=== PATIENT | female | born 1955 | race Caucasian/White ===

== ENCOUNTER 2017-09-04 18:30 | Emergency (ER) | payer MEDICAID ==
[~2017-09-04] VITALS: Ht 149.9 cm; Wt 54.4 kg
[~2017-09-04 18:30] MED LIST: ASPI81TA31 PO; CITA20TA19 PO; HTN MED; SIMV10TA6 PO
[2017-09-04] MEDS ORDERED: LOSA25TA13 PO (18:48)
[2017-09-04] MEDS ORDERED: VITAMIN D PO (18:48)
[2017-09-04] MEDS ORDERED: ATOR20TA PO (18:48)
[2017-09-04] MEDS ORDERED: HYDR12.55 PO (18:48)
[2017-09-04] MEDS ORDERED: CITA40TA11 PO (18:48)
--- NOTE | 2017-09-04 18:55 | NUR ---
PATIENT WAS SEEN BY MD FOR CHEST PAIN. SHE IS AMBULATORY WITH STEADY GAIT IN NO DISTRESS. AWAITING TEST RESULTS.
[2017-09-04 19:16] LABS: BASOPHILS % (AUTO) 0.6 % (0.0-2.0); EOSINOPHILS # (AUTO) 0.2 K/uL (0.0-0.7); EOSINOPHILS % (AUTO) 2.1 % (0.0-7.0); HEMATOCRIT 41.8 % (31.2-41.9); HEMOGLOBIN 14.1 g/dL (10.9-14.3); LYMPHOCYTES # (AUTO) 2.4 K/uL (20.0-40.0); MEAN CORPUSCULAR HEMOGLOBIN 30.8 uug (24.7-32.8); MEAN CORPUSCULAR HGB CONC 34 g/dL (32.3-35.6); MONOCYTES # (AUTO) 0.6 K/uL (2.0-10.0); MONOCYTES % (AUTO) 8.4 % (0.0-11.0); NEUTROPHILS # (AUTO) 4.2 K/uL (1.8-8.9); NEUTROPHILS % (AUTO) 56.9 % (38.5-71.5); PLATELET COUNT (AUTO) 270 K/uL (179-408); RED BLOOD CELL COUNT(AUTO) 4.59 MIL/uL (3.63-4.92); WHITE BLOOD COUNT (AUTO) 7.4 K/uL (3.8-11.8)
[2017-09-04 19:18] LABS: CREATININE 0.8 mg/dL (0.6-1.3); POTASSIUM 3.6 mmol/L (3.5-5.1)
--- NOTE | 2017-09-04 20:27 | NUR ---
PT IN BED. PT IS WATCHING TV. NO SIGN OR SYMPTOMS OF DISTRESS EXPRESSED OR WITNESSED.
--- NOTE | 2017-09-04 22:02 | NUR ---
PT IN BED. PT WATCHING TV. NO SIGNS OR SYMPTOMS OF DISTRESS WITNESSED OR EXPRRESSED BY PT AT THIS TIME.
--- NOTE | 2017-09-04 22:30 | NUR ---
PATIENT WITH NO DISTRESS NOTED. DENIES CP,SOB AT THIS TIME
--- NOTE | 2017-09-04 23:00 | NUR ---
Patient discharged to home in stable conditon. Written and verbal after care instructions given. Patient verbalizes understanding of instructions. WALKED OUT OF ER WITH NO DISTRESS NOTED
[2017-09-04 23:02] VITALS: BP 128/79
== END 2017-09-04 23:03 | disposition home or self-care (01) ==
LOC: ER 18:32
DX: R07.89 Other chest pain (principal); I10 Essential (primary) hypertension; Z90.89 Acquired absence of other organs; Z88.7 Allergy status to serum and vaccine; Z79.82 Long term (current) use of aspirin; Z79.899 Other long term (current) drug therapy
CPT/HCPCS: 36415; 71045; 80048; 84484 ×2; 85025; 85730; 93005 ×2; 99285; A4663; 70030-TC

== ENCOUNTER 2017-11-26 15:05 | Emergency (ER) | payer BC, MEDICAID ==
[~2017-11-26] VITALS: Ht 149.9 cm; Wt 58.1 kg
[~2017-11-26 15:05] MED LIST changes: +ATOR20TA PO; -CITA20TA19 PO; +CITA40TA11 PO; -HTN MED; +HYDR12.55 PO; +LOSA25TA13 PO; -SIMV10TA6 PO; +VITAMIN D PO
[2017-11-26 15:49] LABS: BASOPHILS # (AUTO) 0.1 K/uL (0.0-8.0); BASOPHILS % (AUTO) 0.7 % (0.0-2.0); EOSINOPHILS # (AUTO) 0.2 K/uL (0.0-0.7); HEMATOCRIT 41.2 % (31.2-41.9); HEMOGLOBIN 14.2 g/dL (10.9-14.3); LYMPHOCYTES # (AUTO) 1.8 K/uL (20.0-40.0); MEAN CORPUSCULAR HEMOGLOBIN 31.3 uug (24.7-32.8); MEAN CORPUSCULAR HGB CONC 35 g/dL (32.3-35.6); MEAN CORPUSCULAR VOLUME 90.8 fL (75.5-95.3); MONOCYTES # (AUTO) 0.7 K/uL (2.0-10.0); MONOCYTES % (AUTO) 9.4 % (0.0-11.0); NEUTROPHILS # (AUTO) 4.3 K/uL (1.8-8.9); NEUTROPHILS % (AUTO) 60.9 % (38.5-71.5); PLATELET COUNT (AUTO) 265 K/uL (179-408); RED BLOOD CELL COUNT(AUTO) 4.54 MIL/uL (3.63-4.92)
[2017-11-26 15:54] LABS: CREATININE 0.8 mg/dL (0.6-1.3); POTASSIUM 3.6 mmol/L (3.5-5.1)
[2017-11-26 16:07] LABS: BILIRUBIN,DIRECT 0.1 mg/dL (0.0-0.2); BILIRUBIN,TOTAL 0.5 mg/dL (0.2-1.0); TOTAL PROTEIN, SERUM 7.9 g/dL (6.4-8.2)
--- NOTE | 2017-11-26 17:00 | NUR ---
MSE COMPLETED, PT D/C'D HOME, ACI/WORK EXCUSE GIVEN. PT AMBULATED W/O DIFF/TOOK ALL BELONGINGS.
[2017-11-26 17:03] VITALS: BP 111/72
== END 2017-11-26 17:04 | disposition home or self-care (01) ==
LOC: ER 15:08
DX: R20.2 Paresthesia of skin (principal); E78.5 Hyperlipidemia, unspecified; I10 Essential (primary) hypertension; I70.0 Atherosclerosis of aorta; Z79.82 Long term (current) use of aspirin; Z88.7 Allergy status to serum and vaccine
CPT/HCPCS: 36415; 70030-TC; 71045; 85025; 85730; 93005; A4663